=== PATIENT | male | born 1980 | race Caucasian/White ===

== ENCOUNTER 2022-04-11 17:36 | Emergency (ER) | payer OTHER ==
[~2022-04-11] VITALS: Ht 175.2 cm; Wt 108.9 kg
[~2022-04-11 17:36] MED LIST: HYDROCODONE BIT1 T11 PO; PRILOSEC20 M1 PO; ROPINIROLE HY0.25 MG PO
[2022-04-11] MEDS ORDERED: CYCLOBENZAPRINE5 M3 PO (22:15)
[2022-04-11] MEDS ORDERED: NAPROSYN500 MG PO (22:15)
== END 2022-04-11 23:11 | disposition home or self-care (01) ==
LOC: ED 17:36
DX: S16.1XXA Strain of muscle, fascia and tendon at neck level, initial encounter (principal); S09.90XA Unspecified injury of head, initial encounter; M62.838 Other muscle spasm; Z88.0 Allergy status to penicillin; Z79.899 Other long term (current) drug therapy; V49.59XA Passenger injured in collision with other motor vehicles in traffic accident, initial encounter; Y93.89 Activity, other specified; Y92.89 Other specified places as the place of occurrence of the external cause; Y99.8 Other external cause status

== ENCOUNTER 2023-10-18 17:20 | Emergency (ER) | payer OTHER ==
[~2023-10-18] VITALS: Ht 177.8 cm; Wt 97.5 kg
[2023-10-18] VITALS (8 sets, daily range): BP systolic 101–160; BP diastolic 31–79
[~2023-10-18 17:20] MED LIST changes: +CYCLOBENZAPRINE5 M3 PO; +NAPROSYN500 MG PO
[2023-10-18] MEDS ORDERED: OCTREOTIDE ACETATE 500 MCG in SODIUM CHLORIDE 0.9% 100 ML IV ONE (17:45)
[2023-10-18] MEDS ORDERED: Pantoprazole Sodium 40 MG VIAL IV ONE (17:45)
[2023-10-18 18:07] LABS: MEAN CELL VOLUME 97.7 fl (80.0-94.0); MEAN CORPUSCULAR HGB 31.2 pg (27.0-31.0); MEAN PLATELET VOLUME 10.8 fl (9.6-12.3); PLATELET COUNT AUTOMATED 104 10*3/uL (130-400); RED BLOOD COUNT 1.73 10*6/uL (4.50-5.90); RED CELL DISTRI WIDTH 17.6 % (0-14.5); WHITE BLOOD COUNT 20.7 10*3/uL (4.8-10.8)
[2023-10-18 18:09] LABS: HEMATOCRIT 16.9 % (42.0-52.0); MANUAL DIFF REFLEX YES
[2023-10-18 18:16] LABS: ACT PARTIAL THROMBO TIME 29.3 SECONDS (20.0-32.1)
[2023-10-18 18:32] LABS: ALKALINE PHOSPHATASE 79 U/L (46-116); BUN 15 mg/dl (9-23); CHLORIDE 101 mmol/L (98-107); LIPASE 16 U/L (12-53); POTASSIUM 3.3 mmol/L (3.4-5.1); SGPT/ALT 8 U/L (5-49); TOTAL PROTEIN 4.9 gm/dL (6.0-8.0)
[2023-10-18 18:36] LABS: PLATELET SUFFICIENCY LOW (NORMAL); TOTAL CELLS COUNTED 100 #CELLS
[2023-10-18 18:37] LABS: OVALOCYTES FEW; POLYCHROMASIA SLIGHT
[2023-10-18] MEDS ORDERED: SODIUM CHLORIDE 0.9% 500 ML IV ONE (19:18)
[2023-10-18] MEDS ORDERED: Ceftriaxone Sodium 1 GM/10 ML SYR IV ONE (20:15)
[2023-10-18] MEDS ORDERED: NOREPINEPHRINE BITARTRATE/D5W 250 ML IV SCH (20:15)
[2023-10-18] MEDS ORDERED: ROCURONIUM BROMIDE 50 MG/5 ML SYRINGE IV ONE (20:15)
[2023-10-18] MEDS ORDERED: CALCIUM GLUC IN NACL, ISO-OSM 100 ML IV ONE (20:15)
[2023-10-18] MEDS ORDERED: ETOMIDATE 20 MG/10 ML VIAL IV ONE (20:15)
[2023-10-18] MEDS ORDERED: PROPOFOL 50 ML IV SCH (20:15)
[2023-10-18] MEDS ORDERED: Midazolam Hydrochloride 5 MG/5 ML VIAL IV ONE (22:10)
[2023-10-18] MEDS ORDERED: SODIUM CHLORIDE 0.9% 1,000 ML IV ONE (22:37)
[2023-10-19] MEDS ORDERED: ROCURONIUM BROMIDE 50 MG/5 ML SYRINGE IV ONE ×2 (10:26→11:47)
[2023-10-19] MEDS ORDERED: ETOMIDATE 20 MG/10 ML VIAL IV ONE (11:47)
[2023-10-19] MEDS ORDERED: Succinylcholine Chloride 200 MG/10 ML SYRINGE IV ONE (11:47)
== END 2023-10-18 22:48 | disposition short-term general hospital (02) ==
LOC: ED 17:20
PROVIDERS: Physician Assistant Medical
DX: K92.0 Hematemesis (principal); R53.1 Weakness; I10 Essential (primary) hypertension; Z88.0 Allergy status to penicillin; Z79.899 Other long term (current) drug therapy